=== PATIENT | female | born 2000 | race Caucasian/White ===

== ENCOUNTER 2019-06-07 19:35 | Emergency (ER) | payer OTHER ==
[2019-06-07 19:46] VITALS: RESP 20
--- NOTE | 2019-06-07 19:53 | ED ---
Fever HPI - General Chief Complaint: Fever Stated Complaint: Dizziness Time Seen by Provider: 06/07/19 19:49 Source: patient, RN notes reviewed, old records reviewed Mode of arrival: ambulatory Limitations: no limitations - History of Present Illness Initial Comments: This is a 18-year-old female the ER for evaluation presents today for evaluation regards to fever fever nausea headache not feeling well. No dysuria no cough no chest pain no sore throat no runny nose. No known sick contacts. Patient is not been feeling well for a few days but 2 days. Appetite and severely diminished. She did recently traveled to [place] but no known significant sick contacts. Patient was sent in from [facility] breath today, sent from [facility] pressure evaluation of dehydration and fever MD Complaint: fever, weakness -: days(s) Temperature Source: subjective Context: recent travel Associated Symptoms: chills, myalgias, nausea Treatments Prior to Arrival: none - Related Data Allergies Allergy/AdvReac Type Severity Reaction Status Date / Time No Known Allergies Allergy Verified 06/07/19 19:46 Review of Systems ROS Statement: Those systems with pertinent positive or pertinent negative responses have been documented in the HPI. ROS Other: All systems not noted in ROS Statement are negative. Past Medical History Past Medical History: No Reported History History of Any Multi-Drug Resistant Organisms: None Reported Past Surgical History: No Surgical Hx Reported Past Psychological History: No Psychological Hx Reported Smoking Status: Never smoker Past Alcohol Use History: None Reported Past Drug Use History: None Reported General Exam Limitations: no limitations General appearance: alert, in no apparent distress Head exam: Present: atraumatic, normocephalic, normal inspection Eye exam: Present: normal appearance, PERRL, EOMI. Absent: scleral icterus, conjunctival injection, periorbital swelling ENT exam: Present: normal exam, mucous membranes dry Neck exam: Present: normal inspection. Absent: tenderness, meningismus, lymp hadenopathy Respiratory exam: Present: normal lung sounds bilaterally. Absent: respiratory distress, wheezes, rales, rhonchi, stridor Cardiovascular Exam: Present: normal rhythm, tachycardia, normal heart sounds. Absent: systolic murmur, diastolic murmur, rubs, gallop, clicks GI/Abdominal exam: Present: soft, normal bowel sounds. Absent: distended, tenderness, guarding, rebound, rigid Extremities exam: Present: normal inspection, full ROM, normal capillary refill. Absent: tenderness, pedal edema, joint swelling, calf tenderness Back exam: Present: normal inspection Neurological exam: Present: alert, oriented X3, CN II-XII intact Psychiatric exam: Present: normal affect, normal mood Skin exam: Present: warm, dry, intact, normal color. Absent: rash Course Vital Signs 06/07/19 19:43 Temperature 100.4 F H Pulse Rate 135 H Respiratory 20 Rate Blood Pressure 121/76 O2 Sat by Pulse 99 Oximetry - Reevaluation(s) Reevaluation #1: 06/07/19 21:17 Medical records reviewed 06/07/19 21:17 The patient's medical express transfer, patient did have urine which showed significant amount of ketones Reevaluation #2: 06/07/19 21:17 Patient's family much better with IV hydration and fever control Medical Decision Making - Medical Decision Making 89 female the ER for evaluation of fever unknown cause of fever, testing here is normal. Patient will be discharged with fever control and viral syndrome instructions, to continue to treat fever and increased fluid intake - Lab Data Result diagrams: 06/07/19 20:30 06/07/19 20:30 Lab Results 06/07/19 06/07/19 06/07/19 Range/Units 20:17 20:30 20:30 WBC 4.7 (4.0-11.0) k/uL RBC 5.12 (3.80-5.40) m/uL Hgb 15.9 (11.4-16.0) gm/dL Hct 43.8 (34.0-46.0) % MCV 85.5 (80.0-100.0) fL MCH 31.1 (25.0-35.0) pg MCHC 36.4 (31.0-37.0) g/dL RDW 11.9 (11.5-15.5) % Plt Count 178 (150-450) k/uL Neutrophils % 78 % Lymphocytes % 10 % Monocytes % 8 % Eosinophils % 1 % Basophils % 1 % Neutrophils # 3.7 (1.3-7.7) k/uL Lymphocytes # 0.5 L (1.0-4.8) k/uL Monocytes # 0.4 (0-1.0) k/uL Eosinophils # 0.0 (0-0.7) k/uL Basophils # 0.1 (0-0.2) k/uL Sodium 133 L (137-145) mmol/L Potassium 4.0 (3.5-5.1) mmol/L Chloride 99 (98-107) mmol/L Carbon Dioxide 20 L (22-30) mmol/L Anion Gap 14 mmol/L BUN 12 (7-17) mg/dL Creatinine 0.71 (0.52-1.04) mg/dL Est GFR (CKD-EPI)AfAm >90 (>60 ml/min/1.73 sqM) Est GFR (CKD-EPI)NonAf >90 (>60 ml/min/1.73 sqM) Glucose 95 (74-99) mg/dL Calcium 9.5 (8.4-10.2) mg/dL Phosphorus 3.1 (2.5-4.5) mg/dL Magnesium 1.9 (1.6-2.3) mg/dL Total Bilirubin 1.2 (0.2-1.3) mg/dL AST 29 (14-36) U/L ALT 24 (9-52) U/L Alkaline Phosphatase 78 (38-126) U/L Total Protein 7.8 (6.3-8.2) g/dL Albumin 4.7 (3.5-5.0) g/dL Influenza Type A RNA Not Detected (Not Detectd) Influenza Type B (PCR) Not Detected (Not Detectd) Disposition Clinical Impression: Viral infection, Fever Disposition: HOME SELF-CARE Condition: Good Instructions (If sedation given, give patient instructions): Fever in Adults (ED) Is patient prescribed a controlled substance at d/c from ED?: No Referrals: None,Stated [Primary Care Provider] - 1-2 days
[2019-06-07] MEDS ORDERED: SODIUM CHLORIDE 0.9% 1,000 ML IV STA (20:09)
[2019-06-07] MEDS ORDERED: ONDANSETRON 4 MG/2 ML VIAL IVP STA (20:09)
[2019-06-07] MEDS ORDERED: ACETAMINOPHEN TAB 500 MG TAB PO STA (20:11)
[2019-06-07] MEDS ORDERED: IBUPROFEN 600 MG TAB PO STA (20:11)
[2019-06-07 20:55] LABS: Basophils # (A) 0.1 k/uL (0-0.2); Basophils % (A) 1 %; Eosinophils % (A) 1 %; HCT 43.8 % (34.0-46.0); HGB 15.9 gm/dL (11.4-16.0); Lymphocytes # (A) 0.5 k/uL (1.0-4.8); Lymphocytes % (A) 10 %; MCH 31.1 pg (25.0-35.0); MCHC 36.4 g/dL (31.0-37.0); MCV 85.5 fL (80.0-100.0); Mean Platelet Volume 6.1; Monocytes # (A) 0.4 k/uL (0-1.0); Monocytes % (A) 8 %; Neutrophils # (A) 3.7 k/uL (1.3-7.7); Neutrophils % (A) 78 %; Platelet Count 178 k/uL (150-450); RBC 5.12 m/uL (3.80-5.40); RDW 11.9 % (11.5-15.5); WBC 4.7 k/uL (4.0-11.0)
[2019-06-07 21:04] LABS: ALT 24 U/L (9-52); AST 29 U/L (14-36); African American GFR (CKD) >90 (>60 ml/min/1.73 sqM); Albumin 4.7 g/dL (3.5-5.0); Alkaline Phosphatase 78 U/L (38-126); Anion Gap 14 mmol/L; Blood Urea Nitrogen 12 mg/dL (7-17); Calcium 9.5 mg/dL (8.4-10.2); Carbon Dioxide 20 mmol/L (22-30); Chloride 99 mmol/L (98-107); Glucose 95 mg/dL (74-99); Magnesium 1.9 mg/dL (1.6-2.3); Non-African American GFR(CKD) >90 (>60 ml/min/1.73 sqM); Phosphorus 3.1 mg/dL (2.5-4.5); Sodium 133 mmol/L (137-145); Total Bilirubin 1.2 mg/dL (0.2-1.3); Total Protein 7.8 g/dL (6.3-8.2)
[2019-06-07 22:21] VITALS: BP 111/68; PULSE 101; TEMP 98.2
== END 2019-06-07 22:22 | disposition home or self-care (01) ==
LOC: EC 19:35
DX: B34.9 Viral infection, unspecified (principal)
CPT/HCPCS: 36415; 80053; 83735; 84100; 85025; 87040; 87502; 99284; 96374; 96361; J2405